=== PATIENT | male | born 1965 | race Two or more races ===

== ENCOUNTER 2018-02-25 07:13 | Day surgery (SDC) | payer MEDICARE, MEDICAID ==
--- NOTE | 2018-02-19 12:35 | HP ---
PREOPERATIVE HISTORY AND PHYSICAL: DATE OF SURGERY: 02/25/18 DATE OF OFFICE VISIT: 02/19/18 ATTENDING SURGEON: Dr. Tran Thurston.* (DICTATED BY AYAN PANDA) PROCEDURE: Right shoulder arthroscopic rotator cuff repair, decompression, debridement, and subpectoral biceps tenodesis. CHIEF COMPLAINT: Right shoulder pain. HISTORY OF PRESENT ILLNESS: Kash is a 52-year-old male who presents to the clinic for right shoulder pain due to a rotator cuff tear and biceps tendonitis. He has failed conservative measures and has therefore agreed to undergo a right shoulder arthroscopic rotator cuff repair, decompression, debridement and subpectoral biceps tenodesis with Dr. Thurston on 02/25/18. PAST MEDICAL HISTORY: Hypertension, type 2 diabetes, high cholesterol, osteoarthritis, depression, fibromyalgia, Parkinson's disease. PAST SURGICAL HISTORY: Three back surgeries and neck surgery, and a gastric sleeve. The patient denies prior complications with anesthesia. MEDICATIONS: 1. Carbidopa/levodopa 25/100 mg 3 times a day. 2. Sulfasalazine 500 mg 3 tabs in the morning, 2 in the evening. 3. Ramipril 2.5 mg one by mouth daily. 4. Paroxetine 40 mg one by mouth daily. 5. Soma 250 mg one by mouth 4 times a day. 6. Hydrocodone/acetaminophen 10/325 one by mouth every 4 hours as needed. 7. Zolpidem tartrate 5 mg one by mouth at bedtime as needed. 8. Novolin 70/30 as directed. 9. Paxil once a day. 10. Montelukast sodium 10 mg once a day. 11. Primidone 50 mg one daily. ALLERGIES: No known drug allergies. FAMILY HISTORY: Positive for diabetes, heart disease, hypertension, stroke. He does state that his mom has a history of circulation and clotting issues in her leg. She required bypass and was on thinners alf, but she was a long- term diabetic. SOCIAL HISTORY: He lives with his spouse. He denies tobacco use. He quit a couple of weeks ago. He denies alcohol use. He is right hand dominant. REVIEW OF SYSTEMS: A 14-point review of systems was reviewed with the patient. Positive for current complaint, otherwise negative. Denies fever, chills, chest pain, shortness of breath, history of DVT or PE, history of bleeding disorder, history of hep C or HIV. Denies history of MRSA. PHYSICAL EXAMINATION GENERAL: A 52-year-old well-developed, well-nourished male, in no acute distress. Alert and oriented x3. Appropriate mood and affect. Appropriate balance and coordination of the upper extremities. VITAL SIGNS: Height 73, weight 226, pulse 79, blood pressure 143/81, temperature 96.4, BMI 29.8. HEENT: Normocephalic, atraumatic. PERRLA. Throat clear. NECK: Supple. PULMONARY: Lungs are clear to auscultation bilaterally. No wheezing, rhonchi, or rales. CARDIOVASCULAR: Regular rate and rhythm. S1, S2. No murmurs, gallops, or rubs. No edema. ABDOMEN: Positive bowel sounds, soft, nontender. MUSCULOSKELETAL: Right upper extremity, skin is intact. No evidence of erythema. Forward flexion to 100. Passive to 160. Abduction 100. External rotation to 70. Internal rotation thoracolumbar spine +4 to 5. Strength to rotator cuff testing with pain. +2 radial pulses. Sensation intact to light touch distally. NEUROLOGIC: Alert and oriented x3. Cranial nerves grossly intact. Sensation intact to light touch. STUDIES: MRI revealed a small full thickness rotator cuff tear and not retracted, minimal atrophy, and minimal tendinopathy. ASSESSMENT: Right shoulder rotator cuff tear and biceps tendonitis. PLAN: The patient is scheduled to undergo a right shoulder arthroscopic rotator cuff repair, decompression, debridement and subpectoral biceps tenodesis with Dr. Thurston on 02/25/18. He will follow up in 10 to 14 days postop for followup and suture removal. Oxycodone will be used postoperatively for breakthrough pain in addition to his chronic pain medications. AYAN PANDA [id number]/[facility] #: [id number] JO-ANN
[~2018-02-25 07:13] MED LIST: Buffered Lidocaine 0.9% SYRIN* 5 ML/SYR SYRINGE INTRADERM ONE; Dexamethasone IV* 4 MG/ML 1 ML (4 MG) IV SLOW PU ONE; Famotidine IV* 10 MG/ML 2 ML (20 mg) IV ONE
[2018-02-25] MEDS ORDERED: ceFAZolin 2 GM PREMIX (*) 2 GM/50 ML BAG IVPB ONE (07:24)
[2018-02-25] MEDS ORDERED: Famotidine IV* 10 MG/ML 2 ML (20 mg) ONE (07:24)
[2018-02-25] MEDS ORDERED: Dexamethasone IV* 4 MG/ML 1 ML (4 MG) ONE (07:24)
[2018-02-25] MEDS ORDERED: Propofol* 10 MG/ML 20 ML BTL IV PUSH ONE (08:27)
[2018-02-25] MEDS ORDERED: Ondansetron INJ* 2 MG/ML VIAL ONE (08:27)
[2018-02-25] MEDS ORDERED: Lidocaine 2% PF * 5 ML VIAL ONE (08:27)
[2018-02-25] MEDS ORDERED: Midazolam* 1 MG/ML 5 ML VIAL (5 MG) ONE (08:28)
[2018-02-25] MEDS ORDERED: fentaNYL* 50 MCG/ML 2 ML VIAL (100 MCG VIAL) ONE ×2 (08:28→11:54)
[2018-02-25] MEDS ORDERED: Atracurium* 10 MG/ML 10 ML VIAL ONE (08:28)
[2018-02-25] MEDS ORDERED: Carbidopa/Levodop 25/100 MG TAB(*) PO ONE (08:51)
[2018-02-25] MEDS ORDERED: fentaNYL* 50 MCG/ML 5 ML VIAL (250 MCG VIAL) ONE (08:56)
[2018-02-25] MEDS ORDERED: EPHEDrine (Pressors)* 50 MG/ML VIAL ONE (09:01)
[2018-02-25] MEDS ORDERED: Ropivacaine* 2 MG/ML 20 ML VIAL (0.2%) ONE (09:07)
[2018-02-25] MEDS ORDERED: DiMENhydriNATE IV* 50 MG/ML VIAL IV PUSH PRN (10:12)
[2018-02-25] MEDS ORDERED: Naloxone* 0.4 MG/ML 1 ML VIAL IV PRN (10:12)
[2018-02-25] MEDS ORDERED: Ondansetron INJ* 2 MG/ML VIAL IV PRN (10:12)
[2018-02-25] MEDS ORDERED: oxyCODONE/Acetamin 5/325 MG* TAB ONE ×2 (11:06→11:54)
[2018-02-25] MEDS: oxyCODONE/Acetamin 5/325 MG* TAB PO PRN ×2 (11:07→11:56)
[2018-02-25] MEDS: fentaNYL* 50 MCG/ML 2 ML VIAL (100 MCG VIAL) IV PRN ×2 (11:54→11:57)
[2018-02-25] MEDS ORDERED: HYDROmorphone INJ1* 1 MG/ML SYRINGE ONE ×2 (12:11→13:36)
[2018-02-25] MEDS: HYDROmorphone INJ* 0.5 MG/0.5 ML SYRINGE IV PRN ×4 (12:12→13:39)
[2018-02-25 14:26] VITALS: BP 146/82
--- NOTE | 2018-02-25 16:04 | OP ---
CC: PCP, Anjelica Cabral MD * DATE OF OPERATION: 02/25/18 - [facility] DATE OF : 63 SURGEON: Tran Thurston MD HOMEMAKER COMPANION: AYAN Wu. An geological survey field assistant was needed for the entirety of the case to help with positioning, retraction and was utilized throughout all portions of the case. ANESTHESIOLOGIST: Dr. Leon. ANESTHESIA: General. PRE-OP DIAGNOSIS: Right shoulder high grade partial thickness tear of the rotator cuff with bicipital tendinosis and tendinopathy. POST-OP DIAGNOSIS: Right shoulder high grade partial thickness tear of the rotator cuff with bicipital tendinosis and tendinopathy. OPERATIVE PROCEDURE: 1. Right shoulder arthroscopy with extensive glenohumeral debridement including debridement of the anteroposterior superior labrum. 2. Subacromial decompression with acromioplasty. 3. Rotator cuff repair with Regeneten patch. 4. Biceps tenodesis. IMPLANTS USED: One Regeneten patch size medium, one Q-FIX anchor 2.8 mm. COMPLICATIONS: None. ESTIMATED BLOOD LOSS: Minimal. INDICATIONS: Kash Ramey is a 52-year-old male with persistent right shoulder pain refractory to physical therapy, antiinflammatories, and injections. He has MRI findings concerned with the partial thickness tear of the rotator cuff. The patient underwent preoperative medical risk optimization. Risks and benefits were discussed at length and included, but not limited to bleeding, infection, damage to nerves, vessels, surrounding structures, wound nonhealing, persistent pain, need for further surgery, scarring, stiffness, incomplete relief of symptoms, risks of anesthesia. DESCRIPTION OF PROCEDURE: The patient was greeted in the preoperative area by the attending surgeon. Correct extremity was marked and the consent was confirmed. The patient was brought back to the operating suite, she was placed in supine position on operating table. He then underwent general anesthesia and endotracheal intubation, after which he was appropriately positioned in the left lateral decubitus position. All bony prominences were padded. He was secured with peg board and axillary roll was placed. The right arm was draped unsterile with 10- pounds retraction. The right shoulder was prepped and draped in the usual sterile fashion beginning with chlorhexidine soap, scrub, and alcohol wipe and a final prep with ChloraPrep. After appropriate surgical pause indicating site, side, procedure and administration of antibiotics, the posterolateral portal was made sharply with an 11-blade. Scope was introduced into the joint, the joint was examined. There was abundant synovitis and erythema present. There was bicipital tendinosis as well as tendonitis present. The subscap was intact. The anterior portal was made in outside-in fashion. The inferior recess was intact. The anteroposterior superior labrum had unstable fraying. The undersurface of the supraspinatus tendon was visualized, had a partial thickness tearing on the right. The anterior portal was made, biceps was tenotomized for later tenodesis. The anteroposterior superior labrum was debrided back. The fluid and debris was removed from this portion. The case was directed to the subacromial space. The scope was positioned in subacromial space. There was abundant synovitis and bursitis that was present. The lateral portal was made in outside-in fashion. Shaver was used to debride back the abundant bursa that was present. As this was done, there was some partial thickness tearing of the bursal side. The rotator cuff, the undersurface of the acromion was skeletonized using electrocautery device and a 4-0 oval bur was then used to do an acromioplasty. Once this was completed, attention was directed to the rotator cuff. The cuff was examined. There was partial thickness tearing that was present. The decision was made to do Regeneten patch for fixation. The Regeneten patch size medium was brought to the field. The patch was then placed and secured with appropriate tendon and bone pravin over the site of interest where the partial thickness tearing was. Final images were obtained. The wounds were copiously irrigated and attention was directed to the biceps. The bed was air-planed to the right side. The anterior aspect of the shoulder was prepped again using a ChloraPrep. A 15-blade was used to make the incision in line with the skin. A 10-blade was used to make an incision in line with the biceps tendon. The soft tissues were carefully dissected to expose the fascia, which was then incised and soft tissues were carefully elevated. Remainder of the dissection was done bluntly. The biceps was then brought through the wound, had abundant synovitis and erythema as well as tendinosis. The groove was then prepared in usual fashion with electrocautery device, the red ball rasp and osteotome. The Q- FIX drill bit was then drilled using unicortically and the Q-FIX was deployed with excellent purchase. The sutures were passed through the tendon approximately 1 cm proximal musculotendinous junction. The excess stump was excised. The biceps were then shovelled back to the wound and then secured. The wounds were copiously irrigated with sterile saline. The anterior wound was closed in layers with 2-0 Vicryl and 3-0 Monocryl. The portals were closed with 3-0 nylon. Sterile dressings were applied. The shoulder was injected approximately with 40 cc of 0.25% ropivacaine for postoperative pain control. Sterile dressings, Cryo/Cuff and UltraSling were placed. She was awoken from anesthesia and transferred to PACU in stable condition. POSTOPERATIVE PLAN: He will be nonweightbearing. He will be in a sling for approximately for 4 weeks. He will be discharged on pain medications. He will start physical therapy next week. DVT prophylaxis was considered, but deferred due to no previous personal or family history. [id number]/[facility] #: [id number] JO-ANN
== END 2018-02-25 14:28 | disposition home or self-care (01) ==
LOC: OR 07:13
PROVIDERS: ATTEND Orthopaedic Surgery
DX: S46.011A Strain of muscle(s) and tendon(s) of the rotator cuff of right shoulder, initial encounter (principal); M75.21 Bicipital tendinitis, right shoulder; I10 Essential (primary) hypertension; Z72.0 Tobacco use; E11.9 Type 2 diabetes mellitus without complications; Z79.4 Long term (current) use of insulin; E78.00 Pure hypercholesterolemia, unspecified; M19.90 Unspecified osteoarthritis, unspecified site; G20 Parkinson's disease; X58.XXXA Exposure to other specified factors, initial encounter; Y92.9 Unspecified place or not applicable
CPT/HCPCS: A9270-GY; C1713; C1776; J0690; J1100; J1170; J2250; J2405; J2704; J2795; J3010